=== PATIENT | female | born 1960 | race Hispanic/Latino ===

== ENCOUNTER 2017-04-06 10:43 | Outpatient (CLI) | payer BC ==
[2017-04-06 17:24] LABS: Hematocrit 44.8 % (36.0-47.0)
[2017-04-06 17:34] LABS: Hemoglobin A1c 5.8 % (4.0-6.0)
--- NOTE | 2017-04-07 14:28 | EKG ---
Test Reason : Blood Pressure : / mmHG Vent. Rate : 076 BPM Atrial Rate : 076 BPM P-R Int : 154 ms QRS Dur : 096 ms QT Int : 404 ms P-R-T Axes : 037 009 033 degrees QTc Int : 454 ms Normal sinus rhythm Normal ECG Confirmed by KAYLEEN MARTINO ([id number]) on 04/07/2017 2:28:23 PM Referred By: Confirmed By:KAYLEEN MARTINO
== END 2017-04-06 10:44 | disposition home or self-care (01) ==
LOC: LABBT 10:43
PROVIDERS: ATTEND Specialist
DX: Z01.818 Encounter for other preprocedural examination (principal); E66.01 Morbid (severe) obesity due to excess calories
CPT/HCPCS: 82040; 82565; 83036; 85014; 93005; 93010

== ENCOUNTER 2017-04-06 17:00 | Inpatient (IN) | payer BC ==
[2017-04-06 16:22] VITALS: BMI 36.7
[2017-04-07] MEDS ORDERED: Scopolamine 1.5 mg/72 hour Patch ONE (09:19)
[2017-04-07] MEDS ORDERED: Heparin 5,000 UNITS/ML VIAL ONE (09:19)
[2017-04-07] MEDS ORDERED: Ketorolac Tromethamine 30 MG/ML VIAL ONE (09:19)
[2017-04-07] MEDS ORDERED: cefOXitin Sodium 2 GM, Syringe 1 ML in Sterile Water 10 ML SLOW IVP SCH (09:30)
[2017-04-07] MEDS ORDERED: Midazolam HCl 2 mg/2 ml Vial ONE ×2 (09:48→09:53)
[2017-04-07] MEDS ORDERED: Fentanyl 100 MCG/2 ML VIAL ONE ×3 (09:53→11:35)
[2017-04-07] MEDS ORDERED: Bupivacaine/Epinephrine 0.25% 30 ML VIAL ONE (09:58)
[2017-04-07] MEDS ORDERED: Fentanyl 250 MCG/5 ML VIAL ONE (12:25)
[2017-04-07] MEDS ORDERED: Dextrose 5% in Water 1,000 ML IV PRN (13:11)
[2017-04-07] MEDS ORDERED: diphenhydrAMINE 50 MG/ML VIAL IVP PRN (13:11)
[2017-04-07] MEDS ORDERED: Dextrose 50% Abboject 50 ML SYRINGE SLOW IVP PRN (13:11)
[2017-04-07] MEDS ORDERED: hydrALAZINE 20 MG/ML VIAL SLOW IVP PRN (13:11)
[2017-04-07] MEDS ORDERED: Promethazine HCl 25 MG/ML VIAL IM PRN (13:11)
[2017-04-07] MEDS ORDERED: Hydrocodone-Acetamin 15 ML UDCUP PO PRN (13:11)
[2017-04-07] MEDS ORDERED: Morphine 4 MG/ML VIAL SLOW IVP PRN (13:50)
[2017-04-07] MEDS: D5 1/2 NS w/20 mEq KCL 1,000 ML IV SCH ×2 (13:51→22:19)
[2017-04-07] MEDS: Ondansetron HCl/PF 4 MG/2 ML Vial IVP PRN ×2 (13:51→22:25)
[2017-04-07] MEDS: Morphine 4 MG/ML VIAL SLOW IVP PRN ×2 (15:36→22:18)
[2017-04-07] MEDS ORDERED: Lidocaine 1% PF 5 ML VIAL ONE (16:41)
[2017-04-07] MEDS ORDERED: Dexamethasone 20 MG/5 ML VIAL ONE (16:41)
[2017-04-07] MEDS ORDERED: Ondansetron HCl/PF 4 MG/2 ML Vial ONE (16:41)
[2017-04-07] MEDS ORDERED: Propofol 200 MG/20 ML VIAL ONE (16:41)
[2017-04-07] MEDS ORDERED: Glycopyrrolate 0.2 MG/ML 5 ML SYRINGE ONE (16:41)
[2017-04-07] MEDS: Ketorolac Tromethamine 30 MG/ML VIAL IVP SCH (17:56)
[2017-04-07] MEDS ORDERED: Enoxaparin Sodium 40 MG/0.4 ML SYRINGE SC SCH (21:00)
[2017-04-08] MEDS: Ketorolac Tromethamine 30 MG/ML VIAL IVP SCH ×3 (00:02→12:08)
[2017-04-08] MEDS ORDERED: cloNIDine 0.2 MG TAB PO PRN (05:03)
[2017-04-08] MEDS ORDERED: Ondansetron HCl/PF 4 MG/2 ML Vial IVP PRN (05:04)
[2017-04-08] MEDS: D5 1/2 NS w/20 mEq KCL 1,000 ML IV SCH ×2 (05:42→13:56)
[2017-04-08 06:22] LABS: #Monocytes 1.3 thou/uL (0.11-0.59); #Neutrophils 9.5 thou/uL (1.40-6.50); %Eosinophils 0.1 % (0.0-10.0); %Lymphocytes 15.3 % (21.0-51.0); Hematocrit 42.5 % (36.0-47.0); Mean Platelet Volume 7.7 fL (7.4-10.4); Red Blood Cell (RBC) Count 4.74 mill/uL (4.20-5.40); White Blood Cell (WBC) Count 12.7 thou/uL (4.8-10.8)
[2017-04-08] MEDS: Morphine 4 MG/ML VIAL SLOW IVP PRN (06:38)
[2017-04-08 06:45] LABS: Anion Gap 11 mmol/L (10-20); BUN (Urea Nitrogen) 10 mg/dL (9.8-20.1); Calc. Creatinine Clearance 140 mL/min (70-130); Calcium 8.6 mg/dL (7.8-10.44); Carbon Dioxide 22 mmol/L (22-29); Chloride 108 mmol/L (98-107); Estimated GFR-MDRD Greater than 90
--- NOTE | 2017-04-08 08:58 | RAD ---
LIMITED UPPER GI WITH 15 ML GASTROGRAFIN: Date: 04/08/17 HISTORY: Recent bariatric surgery (vertical sleeve gastrectomy). FINDINGS/IMPRESSION: There is passage of contrast from the esophagus into the gastric remnant. No contrast extravasation i s seen. There is a significant amount of residual contrast in the esophagus. POS: GUICHO
[2017-04-08] MEDS ORDERED: Pantoprazole 40 MG VIAL IVP SCH (09:00)
[2017-04-08] MEDS ORDERED: GASTROGRAFIN 30 ML BOT ONE (13:40)
[2017-04-08 13:53] VITALS: BP 103/65; TEMP 98.8
--- NOTE | 2017-04-09 04:11 | OP ---
DATE OF PROCEDURE: 04/07/2017 PREOPERATIVE DIAGNOSIS: Morbid obesity. POSTOPERATIVE DIAGNOSES: Morbid obesity with hiatal hernia. OPERATION PERFORMED: Laparoscopic sleeve gastrectomy with repair of hiatal hernia. SURGEON: Tra Jimenez M.D. ANESTHESIA: General endotracheal. INDICATIONS: The patient is a 56-year-old female. She presents with a BMI over 40s and is taken to the operating room at this time for sleeve gastrectomy. DESCRIPTION OF OPERATION: Informed consent was obtained. Patient was taken to the operating room, w here general endotracheal anesthesia was obtained with the patient in the supine position. Abdomen w as prepped with ChloraPrep, draped in sterile fashion. Local anesthetic was infiltrated and 5-mm sup raumbilical incision was created through which Veress needle was passed into the peritoneal cavity. Pneumoperitoneum established using carbon dioxide up to a pressure of 15 mmHg. A 5-mm trocar port wa s passed through this same incision, laparoscopic camera was passed through this port. Under direct vision, 4 additional ports were placed including bilateral subcostal 5-mm port, a 12-mm right paramed alivia port, and a 15-mm left paramedian port. Finally, 5-mm incision was created in the epigastrium th rough which Nathansen retractor was passed into the abdominal cavity and used to retract the left lob e of the liver. Immediately upon entering, it was noted that the patient had a small hiatal hernia. This was easily reduced. I dissected the phrenoesophageal membrane circumferentially. The right cass was dissected. Attention was then turned to the greater curvature of the stomach. I identified an area about 4 cm from the pylorus and began clearing the fatty and vascular tissue away from the greater curvature in an ascending fashion using the LigaSure device. The greater curvature was completely cleared as wel l as all posterior adhesions. Meticulous hemostasis was maintained. I dissected up and identified t he left cass and this was fully dissected. At this point, a retroesophageal window was created. Bot h the right and left cass were clearly identified. I placed a single interrupted suture of 2-0 Ethib ond in the posterior aspect of the crura to minimally closed the hiatus. This was closed with 36-Yovanny nch bougie in place. I then turned my attention to the gastrectomy. The bougie was advanced into the level of the pylorus. Using this as a guide, the gastrectomy was pe rformed using an Idabel stapler with a series of fires in an ascending fashion. Care was taken not to narrow the incisura or gastroesophageal junction. A green load was used first followed by celeste iglesias in the series of blue loads. The resected segment of stomach was then removed through the 15-mm p ort site and the fascia was closed with 0 Vicryl suture using a GraNee needle. Several clips were placed along the staple line areas, but there was some minimal oozing. From above, esophagogastroduodenoscopy was performed advancing the scope through to the level of the pylorus. There was no evidence of intraluminal narrowing or bleeding. There was no evidence of air leak externally. All irrigant within the abdomen was aspirated. All ports and instruments were removed under direct v ision as well as the Herbie retractor. Skin edges were approximated with 4-0 Monocryl subcuticula r suture. Dermabond was placed externally. There were no complications. Patient tolerated the proc edure well and was taken to recovery room in stable condition.
== END 2017-04-08 16:00 | disposition home or self-care (01) | DRG 621 ==
LOC: SURG A 04-07 08:55
PROVIDERS: ADMIT Specialist; ATTEND Specialist
PROC: 0DB64Z3 Excision of Stomach, Percutaneous Endoscopic Approach, Vertical (ICD-10-PCS; principal; 2017-04-07)
PROC: 0BQT4ZZ Repair Diaphragm, Percutaneous Endoscopic Approach (ICD-10-PCS; 2017-04-07)
DX: E66.01 Morbid (severe) obesity due to excess calories (principal); I10 Essential (primary) hypertension; K44.9 Diaphragmatic hernia without obstruction or gangrene; Z87.01 Personal history of pneumonia (recurrent); Z68.36 Body mass index [BMI] 36.0-36.9, adult; Z98.51 Tubal ligation status; G47.30 Sleep apnea, unspecified
CPT/HCPCS: 36415; 74241; 80048; 85025; 88307; 88312; A4216; C9113; J0131; J0360; J0694; J1100; J1644; J1650; J1885; J2001; J2250; J2270; J2405; J2550; J2704; J3010